=== PATIENT | male | born 1955 | race Caucasian/White ===

== ENCOUNTER 2018-09-15 05:41 | Day surgery (SDC) | payer OTHER ==
[~2018-09-15] VITALS: Ht 170.2 cm; Wt 117.5 kg
--- NOTE | ~2018-09-15 | O ---
[facility] [place] [address] OPERATIVE REPORT Name: HAIR BELTRE Room #: 150-9 [facility] M.R.#: [id number] Admission: 09/15/18 ������������������ Attend Phys: Royce Lyles MD Discharge: ������������������ Date of : 55 Report #: [id number] THIS REPORT FOR: //name// CC: Carissa Lyles DATE OF SERVICE: 09/15/2018 SURGEON: Royce Lyles M.D. TENNIS INSTRUCTOR: None. PREOPERATIVE DIAGNOSIS: Bilateral lower lid ectropion. POSTOPERATIVE DIAGNOSIS: Bilateral lower lid ectropion. OPERATION PERFORMED: Bilateral lower lid ectropion repair. ANESTHESIA: Local with IV sedation. COMPLICATIONS: None. INDICATIONS FOR PROCEDURE: This patient has bilateral acquired lower lid ectropion with chronic tearing and discharge. The current procedures are undertaken in order to improve the patient's visual function, lacrimal outflow, and level of comfort. Informed consent was obtained to include but not limit to the risk of loss of vision, bleeding, infection, scarring, failure to improve the problem and need for further surgery. DESCRIPTION OF OPERATION: The patient was taken to the operating room where 2% Xylocaine with epinephrine mixed with equal parts of 0.75% Marcaine with Wydase was administered transcutaneously and transconjunctivally to each lower lid and lateral canthal area. The patient was then prepped and draped in the usual sterile fashion. A Gui clamp was then used to clamp the left lateral canthus following which a sharp canthotomy and cantholysis were performed. The tarsal strip was prepared laterally, removing the lash bearing portion of the redundant lid margin and the redundant tarsal plate. Hemostasis was achieved with a monopolar cautery, as it was throughout the case. The tarsal strip was then secured to the internal portion of the lateral orbital tubercle with two interrupted 5-0 Prolene sutures. The lateral canthal angle was sharply reformed as the subcutaneous structures and the skin were closed with multiple interrupted 6-0 plain gut sutures. [facility] [address] [place] [address] OPERATIVE REPORT Name: EMILYHAIRANNE MCDONALD Room #: 150-9 [facility] M..#: [id number] Admission: 09/15/18 ������������������ Attend Phys: Royce Lyles MD Discharge: ������������������ Date of : 55 Report #: [id number] Attention was then turned to the right side where the same procedure was performed. The wounds were cleaned and dressed with ophthalmic antibiotic ointment. The patient was then transported to the recovery area, having tolerated the procedure well with no anesthetic or operative complications being noted. ��������������������������������������������� ���������������������������������������� By: ��������������������������������������������� [id number] Royce Lyles MD /nt
[~2018-09-15 05:41] MED LIST: ALLOPURINOL 10100 M1 PO; CRESTOR20 MG PO; FLOMAX0.4 MG PO; GLUCOPHAGE1000 MG PO; LISINOPRIL-HCT1 EAC2 PO; MYRBETRIQ50 MG PO; SYNTHROID25 MC1 PO
[2018-09-15 10:00] VITALS: BP 118/65
== END 2018-09-15 12:05 | disposition home or self-care (01) ==
LOC: OR 05:41 → TBA 05:41 → OR 09:23
DX: H02.105 Unspecified ectropion of left lower eyelid (principal); H02.102 Unspecified ectropion of right lower eyelid; G47.33 Obstructive sleep apnea (adult) (pediatric); I10 Essential (primary) hypertension; E78.00 Pure hypercholesterolemia, unspecified; E11.9 Type 2 diabetes mellitus without complications; M10.9 Gout, unspecified; E03.9 Hypothyroidism, unspecified; Z98.890 Other specified postprocedural states; Z79.899 Other long term (current) drug therapy
CPT/HCPCS: 50010; 50101; 50386; 50398; 51636; 56527; 56531; 62110; 62850; 70005